=== PATIENT | female | born 1960 | race Caucasian/White ===

== ENCOUNTER → 2017-02-26 | Outpatient (CLI) | payer OTHER ==
--- NOTE | 2017-02-27 21:28 | WWHP ---
DATE OF SERVICE: 02/26/17 CHIEF COMPLAINT: The patient is here for her routine gynecological exam and mammogram. HISTORY OF PRESENT ILLNESS: This is a 56-year-old G2, P2, with an LMP of 2014. She is without gynecological complaints. Denies postmenopausal bleeding. PAST MEDICAL HISTORY: Chronic hypertension. Depression. Anxiety. Elevated cholesterol. Medications: Lisinopril with hydrochlorothiazide 20/25 one daily, Sertraline 50 mg daily, Pravastatin 40 mg daily, Flovent HFA b.i.d. and she is on another inhaler which she does not know the name of and she uses this q.h.s. ALLERGIES: No known drug allergies. 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 SOCIAL HISTORY: She denies tobacco and drug use and has about 15 alcohol containing drinks per week. This is mostly on the weekends. She has been since 1979 and is a homemaker. She has two grandchildren. REVIEW OF SYSTEMS: Weight has been stable. She denies respiratory, cardiac or gastrointestinal problems. PHYSICAL EXAM: Blood pressure 130/82. Height 5 feet 2 inches. Weight 175 pounds. Temperature 98.6. Pulse 90. This is a well developed, well nourished white female who is alert and oriented times three in no acute distress. HEENT: is within normal limits. Neck is supple without mass or thyromegaly. Chest and lungs clear to auscultation. Heart is regular rate and rhythm. Breasts: Without mass or discharge. Axillary exam is negative for adenopathy. Back negative for CVA tenderness. Abdomen is soft and nontender without palpable masses. Consistent with previous abdominoplasty. Pelvic exam, external genitalia reveals minimal atrophy without lesions. Cervix and vagina has minimal atrophy without lesions. There is no evidence of prolapse. The uterus is mid position, nongravid size and nontender. There are no palpable adnexal masses or tenderness. Rectovaginal exam negative for mass or tenderness. Negative for occult blood. Extremities nontender. IMPRESSION: A 56-year-old menopausal female with normal gynecological exam. PLAN: 1. Pap smear was deferred since she had a normal one last year. 2. Self breast examination was discussed. 3. Mammogram will be done today. 4. Osteoporosis prevention was discussed. 5. She will return in one year. [facility]
--- NOTE | 2017-02-28 10:23 | MM ---
Reason for exam: screening (asymptomatic). Last mammogram was performed 1 year and 7 months ago. History: Patient is postmenopausal. Family history of breast cancer in aunt. Taking hormonal contraceptives for 9 months beginning at age 46. Physical Findings: A clinical breast exam by your physician is recommended on an annual basis and results should be correlated with mammographic findings. MG 3D Screening Mammo W/Cad Bilateral CC and MLO view(s) were taken. Prior study comparison: August 02, 2015, bilateral MG screening mammo w CAD. June 29, 2014, bilateral MG screening mammo w CAD. June 24, 2013, bilateral digital screening mammo w/CAD. There are scattered fibroglandular densities. No suspicious abnormality. ASSESSMENT: Negative, BI-RAD 1 RECOMMENDATION: Routine screening mammogram of both breasts in 1 year.
== END | disposition home or self-care (01) ==
LOC: WWCWWP 14:31
PROVIDERS: ATTEND Obstetrics & Gynecology
DX: Z12.31 Encounter for screening mammogram for malignant neoplasm of breast (principal)
CPT/HCPCS: 77063; G0202

== ENCOUNTER 2017-03-11 12:53 | Emergency (ER) | payer OTHER ==
[2017-03-11] MEDS ORDERED: diphenhydrAMINE 50 MG/ML 1 ML VIAL IVP STA (13:10)
[2017-03-11] MEDS ORDERED: methylPREDNISolone SOD SUCCI 125 MG/2 ML VIAL IV STA (13:10)
[2017-03-11] MEDS ORDERED: FAMOTIDINE 20 MG/2 ML VIAL IV STA (13:10)
--- NOTE | 2017-03-11 13:23 | ED ---
General Adult HPI - General Chief complaint: Allergic Reaction Stated complaint: Bee Sting Time Seen by Provider: 03/11/17 13:04 Source: patient, RN notes reviewed Mode of arrival: ambulatory Limitations: no limitations - History of Present Illness Initial comments: Patient 56-year-old female who presents emergency room today with chief complaint of ALLERGIC reaction to bee sting that occurred yesterday. She does admit that she does have an EpiPen but cannot find yesterday. She states she did find that they did not give her something epinephrine. She has been using some Benadryl at home. She states she does have some increased swelling to the left forearm. Patient denies any difficulty breathing or swallowing. She denies any other complaints or symptoms at this time. Patient denies any recent fever, chills, shortness of breath, chest pain, back pain, abdominal pain, nausea or vomiting, numbness or tingling, dysuria or hematuria, constipation or diarrhea, headaches or visual changes, or any other complaints. - Related Data Home Medications Medication Instructions Recorded Confirmed Albuterol Inhaler [Ventolin Hfa 1 puff INHALATION RT-HS PRN 03/11/17 03/11/17 Inhaler] EPINEPHrine (Auto Inject) [Epipen] 0.3 mg IM ONCE PRN 03/11/17 03/11/17 Fluticasone Nasal [place] [Flonase 1 spray EA NOSTRIL DAILY PRN 03/11/17 03/11/17 Nasal [place]] Fluticasone Propionate [Flovent 1 puff INHALATION RT-BID 03/11/17 03/11/17 Hfa 110mcg] Gabapentin [Neurontin] 300 mg PO Q8HR 03/11/17 03/11/17 Hydrocortisone [Cortizone 10] 1 applic TOPICAL DAILY PRN 03/11/17 03/11/17 Lisinopril-Hctz 20-12.5 mg 1 tab PO DAILY 03/11/17 03/11/17 [Zestoretic 20-12.5] Losartan/Hydrochlorothiazide 1 tab PO DAILY 03/11/17 03/11/17 [Losartan-Hctz 100-25 mg Tab] Megared 1 tab PO DAILY 03/11/17 03/11/17 Melatonin 10 mg PO HS 03/11/17 03/11/17 Pravastatin Sodium [Pravachol] 40 mg PO DAILY 03/11/17 03/11/17 Sertraline HCl [Zoloft] 100 mg PO DAILY 03/11/17 03/11/17 Previous Rx's Medication Instructions Recorded EPINEPHrine [Epipen 2-Alirio] 0.3 mg IM ONCE PRN #1 ml 03/11/17 Famotidine [Pepcid] 20 mg PO BID #20 tablet 03/11/17 diphenhydrAMINE [Benadryl] 1 - 2 tab PO Q6HR PRN #30 capsule 03/11/17 predniSONE 60 mg PO DAILY 5 Days 03/11/17 Allergies Allergy/AdvReac Type Severity Reaction Status Date / Time bee pollen Allergy Swelling Verified 03/11/17 13:44 Review of Systems ROS Statement: Those systems with pertinent positive or pertinent negative responses have been documented in the HPI. ROS Other: All systems not noted in ROS Statement are negative. Past Medical History Past Medical History: Hyperlipidemia, Hypertension History of Any Multi-Drug Resistant Organisms: None Reported Past Surgical History: Joint Replacement, Orthopedic Surgery Past Psychological History: Depression Smoking Status: Never smoker Past Alcohol Use History: Occasional Past Drug Use History: None Reported General Exam - General Exam Comments Initial Comments: General: The patient is awake and alert, in no distress, and does not appear acutely ill. Eye: Pupils are equal, round and reactive to light, extra-ocular movements are intact. No nystagmus. There is normal conjunctiva bilaterally. No signs of icterus. Ears, nose, mouth and throat: There are moist mucous membranes and no oral lesions. Neck: The neck is supple, there is no tenderness or JVD. Cardiovascular: There is a regular rate and rhythm. No murmur, rub or gallop is appreciated. Respiratory: Lungs are clear to auscultation, respirations are non-labored, breath sounds are equal. No wheezes, stridor, rales, or rhonchi. Musculoskeletal: Normal ROM, no tenderness. Strength 5/5. Sensation intact. Pulses equal bilaterally 2+. Neurological: A&O x 3. CN II-XII intact, There are no obvious motor or sensory deficits. Coordination appears grossly intact. Speech is normal. Skin: Moderate redness swelling to the left forearm and hand. No lymphangitic streaking. No angioedema. Psychiatric: Cooperative, appropriate mood & affect, normal judgment. Limitations: no limitations Course Vital Signs 03/11/17 12:54 Temperature 98.8 F Pulse Rate 90 Respiratory 18 Rate Blood Pressure 167/83 O2 Sat by Pulse 95 Oximetry Medical Decision Making - Medical Decision Making Patient reexamined at this time shows no signs of distress. Does admit to improvement after steroids, Benadryl, Pepcid here the emergency room. Patient will be given a prescription for EpiPen to go home with. Continued on steroids. Advised follow-up family doctor. Advised return here to the emergency room symptoms increase or worsen or for any other concerns. Patient states her stay and is in agreement. Disposition Clinical Impression: Bee sting reaction Disposition: HOME SELF-CARE Condition: Good Instructions: Insect Bite or Sting (ED) Additional Instructions: Please use medication as discussed. Please follow-up with family doctor in the next 2 days of symptoms have not improved. Please return to emergency room if the symptoms increase or worsen or for any other concerns. Prescriptions: diphenhydrAMINE [Benadryl] 1 - 2 tab PO Q6HR PRN #30 capsule PRN Reason: Allergic Reaction EPINEPHrine [Epipen 2-Alirio] 0.3 mg IM ONCE PRN #1 ml PRN Reason: Allergic Reaction Famotidine [Pepcid] 20 mg PO BID #20 tablet predniSONE 60 mg PO DAILY 5 Days Referrals: Shravan Mcgregor DO [Primary Care Provider] - 1-2 days Time of Disposition: 14:23
[2017-03-11 14:35] VITALS: BP 141/82; PULSE 67; RESP 20; TEMP 97
== END 2017-03-11 14:33 | disposition home or self-care (01) ==
LOC: EC 12:53
DX: T63.441A Toxic effect of venom of bees, accidental (unintentional), initial encounter (principal); E78.5 Hyperlipidemia, unspecified; I10 Essential (primary) hypertension; F32.9 Major depressive disorder, single episode, unspecified; Z79.51 Long term (current) use of inhaled steroids; Z79.899 Other long term (current) drug therapy; Z91.030 Bee allergy status
CPT/HCPCS: 99283; 96374; 96375 ×2; J1200; J2930

== ENCOUNTER → 2017-10-02 | Outpatient (CLI) | payer OTHER ==
--- NOTE | 2017-10-02 21:47 | ECHOS ---
STRESS ECHOCARDIOGRAM INDICATIONS: Chest pain. MEDICATIONS: Pravastatin, Lisinopril, gabapentin, bupropion. BASELINE HEART RATE: 99 BASELINE BLOOD PRESSURE: 143/71 MAXIMUM HEART RATE: 150 MAXIMUM BLOOD PRESSURE: 143/71 85% MPHR: 138 100% MPHR: 162 METS: 6.8 MAXIMUM STAGE REACHED: 2 TOTAL EXERCISE TIME: 4:45 CLINICAL INFORMATION: Baseline EKG revealed normal sinus rhythm without significant ST-T changes. Patient walked for 4 minutes 45 seconds on a standard [place] protocol and achieved a maximal heart rate of 150 beats per minute, which is well above 85% of predicted maximal. She developed fatigue and shortness of breath but did not have any angina or arrhythmia. EKG did not reveal any ST-segment changes to indicate ischemia. Rare PVCs were noted. By EKG criteria, this is a negative stress test with limited exercise capacity. Baseline echo images revealed normal wall motion and wall thickening of all segments. Echo contrast was used to optimize the image quality. At peak exercise there was good augmentation of left ventricular wall motion and wall thickening of all segments, suggesting that there is no evidence of stress-induced ischemia on this study. IMPRESSION: 1. Limited exercise capacity with a negative stress test by EKG criteria. 2. Normal stress echocardiogram. MMODL / IJN: [id number] /
== END | disposition home or self-care (01) ==
LOC: RADNMMAIN 08:14
PROVIDERS: ATTEND Family Medicine
DX: R07.9 Chest pain, unspecified (principal); E78.5 Hyperlipidemia, unspecified; I10 Essential (primary) hypertension
CPT/HCPCS: 93350; 93017; Q9950

== ENCOUNTER → 2017-11-21 | Outpatient (CLI) | payer OTHER ==
--- NOTE | 2017-11-22 07:14 | XR ---
EXAMINATION TYPE: XR chest 2V DATE OF EXAM: 11/21/2017 COMPARISON: 06/15/2014 HISTORY: Chronic cough TECHNIQUE: Frontal and lateral views of the chest are obtained. FINDINGS: Interstitial prominence is seen diffusely, developed in the interim. There is no focal air space opacity, pleural effusion, or pneumothorax seen. The cardiac silhouette size is upper limits o f normal. The osseous structures are intact. IMPRESSION: Development of diffuse interstitial prominence in comparison to the prior of 06/25/2014. This could relate to mild interstitial pulmonary edema, atypical pneumonitis or could be seen in bro nchitis.
== END | disposition home or self-care (01) ==
LOC: RADXRYALE 16:37
PROVIDERS: ATTEND Family Medicine
DX: J81.1 Chronic pulmonary edema (principal)
CPT/HCPCS: 71046

== ENCOUNTER → 2017-12-13 | Outpatient (CLI) | payer OTHER ==
--- NOTE | 2017-12-13 10:58 | XR ---
EXAMINATION TYPE: XR chest 2V DATE OF EXAM: 12/13/2017 COMPARISON: 11/21/2017 HISTORY: Chronic cough. Follow-up from prior abnormal chest radiograph. TECHNIQUE: Frontal and lateral views of the chest are obtained. FINDINGS: Interstitial prominence has resolved. There is no focal air space opacity, pleural effusio n, or pneumothorax seen. The cardiac silhouette size is within mechanical limits of normal. The os seous structures are intact. Degenerative changes of the glenohumeral and acromioclavicular joints ar e redemonstrated. IMPRESSION: Interstitial prominence has resolved in the interim. No acute cardiopulmonary process on the current exam.
== END | disposition home or self-care (01) ==
LOC: RADXRYALE 09:38
PROVIDERS: ATTEND Family Medicine
DX: R06.02 Shortness of breath (principal)
CPT/HCPCS: 71046

== ENCOUNTER → 2018-02-06 | Outpatient (CLI) | payer OTHER ==
--- NOTE | 2018-02-06 17:05 | XR ---
EXAMINATION TYPE: XR elbow complete LT DATE OF EXAM: 02/06/2018 COMPARISON: NONE HISTORY: Elbow pain and swelling TECHNIQUE: 3 views FINDINGS: I see no fracture nor dislocation. There is no sign of elbow joint effusion. IMPRESSION: Negative left elbow exam.
== END | disposition home or self-care (01) ==
LOC: RADXRYALE 16:24
PROVIDERS: ATTEND Physician Assistant Medical
DX: M25.522 Pain in left elbow (principal); L03.114 Cellulitis of left upper limb

== ENCOUNTER → 2018-04-24 | Outpatient (CLI) | payer OTHER, MEDICARE ==
--- NOTE | 2018-04-25 08:57 | MM ---
Reason for exam: screening (asymptomatic). Last mammogram was performed 1 year and 2 months ago. History: Patient is postmenopausal. Family history of breast cancer in aunt. Took hormonal contraceptives for 9 months beginning at age 46. Physical Findings: A clinical breast exam by your physician is recommended on an annual basis and results should be correlated with mammographic findings. MG 3D Screening Mammo W/Cad Bilateral CC and MLO view(s) were taken. Prior study comparison: February 26, 2017, bilateral MG 3d screening mammo w/cad. August 02, 2015, bilateral MG screening mammo w CAD. The breast tissue is heterogeneously dense. This may lower the sensitivity of mammography. Benign appearing bilateral calcifications. No suspicious abnormality. No significant changes when compared with prior studies. ASSESSMENT: Benign, BI-RAD 2 RECOMMENDATION: Routine screening mammogram of both breasts in 1 year.
== END ==
LOC: RADMAMWWP 08:23
PROVIDERS: ATTEND Family Medicine
DX: Z12.31 Encounter for screening mammogram for malignant neoplasm of breast (principal)
CPT/HCPCS: 77063; 77067

== ENCOUNTER → 2019-03-12 | Outpatient (CLI) | payer OTHER, MEDICARE ==
[2019-03-12 11:34] LABS: HCT 42.6 % (34.0-46.0); HGB 14.2 gm/dL (11.4-16.0); MCH 31.9 pg (25.0-35.0); MCHC 33.4 g/dL (31.0-37.0); MCV 95.4 fL (80.0-100.0); Mean Platelet Volume 6.9; Platelet Count 311 k/uL (150-450); RBC 4.46 m/uL (3.80-5.40); RDW 13.8 % (11.5-15.5); WBC 8.3 k/uL (3.8-10.6)
[2019-03-12 11:43] LABS: ALT 56 U/L (9-52); AST 45 U/L (14-36); African American GFR (CKD) >90 (>60 ml/min/1.73 sqM); Albumin 4.5 g/dL (3.5-5.0); Alkaline Phosphatase 82 U/L (38-126); Anion Gap 9 mmol/L; Blood Urea Nitrogen 15 mg/dL (7-17); Calcium 10.1 mg/dL (8.4-10.2); Carbon Dioxide 30 mmol/L (22-30); Chloride 102 mmol/L (98-107); Glucose 98 mg/dL (74-99); INR 0.9 (<1.2); Partial Thromboplastin Time 25.4 sec (22.0-30.0); Potassium 4.5 mmol/L (3.5-5.1); Prothrombin Time 9.6 sec (9.0-12.0); Sodium 141 mmol/L (137-145); Total Bilirubin 0.6 mg/dL (0.2-1.3); Total Protein 7.7 g/dL (6.3-8.2)
[2019-03-12 11:52] LABS: Appearance,Urine Clear (Clear); Bacteria,Urine Rare /hpf; Bilirubin,Urine Negative (Negative); Blood,Urine Small (Negative); Color,Urine Light Yellow; Glucose,Urine (UA) Negative (Negative); Ketones,Urine Negative (Negative); Leukocyte Esterase,Urine Negative (Negative); Mucus,Urine Rare /hpf; Nitrite,Urine Negative (Negative); Protein,Urine Negative (Negative); RBC,Urine 1 /hpf (0-5); Squamous Epithelial Cell,Urine <1 /hpf (0-4); Urobilinogen,Urine <2.0 mg/dL (<2.0); WBC,Urine <1 /hpf (0-5)
== END | disposition home or self-care (01) ==
LOC: LABPAT 10:40
PROVIDERS: ATTEND Orthopaedic Surgery
DX: Z01.812 Encounter for preprocedural laboratory examination (principal)
CPT/HCPCS: 80053; 81001; 85027; 85610; 85730; 87070; 93005

== ENCOUNTER 2019-04-06 05:39 | Day surgery (SDC) | payer OTHER, MEDICARE ==
[~2019-04-06 05:39] MED LIST: MELOXICAM 7.5 MG TAB PO ONE; ONDANSETRON 4 MG/2 ML VIAL IVP ONE; TRANEXAMIC ACID 1,000 MG in SODIUM CHLORIDE 0.9% 100 ML IVPB ONE
[2019-04-06] MEDS ORDERED: ONDANSETRON 4 MG/2 ML VIAL IVP ONE (05:49)
[2019-04-06] MEDS ORDERED: HYDROmorphone 0.5 MG/0.5 ML SYRINGE IVP PRN ×3 (05:49→09:23)
[2019-04-06] MEDS ORDERED: LIDOCAINE 1% 20 ML VIAL (10MG/ML) FOR IV START INTRADERMA PRN (05:49)
[2019-04-06] MEDS: LACTATED RINGERS 1,000 ML IV SCH ×3 (06:27→21:15)
[2019-04-06] MEDS ORDERED: fentaNYL (PF) 50 MCG/ML 2 ML AMP IV ONE (06:43)
[2019-04-06] MEDS ORDERED: MIDAZOLAM (PF) 2 MG/2 ML VIAL IV ONE (06:43)
[2019-04-06] MEDS ORDERED: MIDAZOLAM 2 MG/2 ML VIAL ONE (07:29)
[2019-04-06] MEDS ORDERED: fentaNYL (PF) 50 MCG/ML 2 ML AMP ONE (07:29)
[2019-04-06] MEDS ORDERED: SODIUM CHLORIDE 0.9% 100 ML BAG ONE (07:29)
[2019-04-06] MEDS ORDERED: TRANEXAMIC ACID 1,000 MG/10 ML VIAL ONE (07:29)
[2019-04-06] MEDS ORDERED: PROPOFOL 10 MG/ML 20 ML VIAL IV ONE (07:29)
[2019-04-06] MEDS ORDERED: PHENYLEPHRINE-0.9% NACL SYG 1 MG/10 ML SYRINGE ONE (07:29)
[2019-04-06] MEDS ORDERED: ceFAZolin 3,000 MG in SODIUM CHLORIDE 0.9% IRRIGATIO 3,000 ML IRRIGATION ONE (07:35)
[2019-04-06] MEDS ORDERED: ROPIVACAINE 246.25 MG, EPINEPHrine 0.5 MG, KETOROLAC 30 MG, cloNIDine HCL/PF 80 MCG, WA... MISCELLANE STA ×5 (07:38)
[2019-04-06] MEDS ORDERED: ROPIVACAINE 0.2%-NS ON-Q PUMP 1,090 MG, EMPTY PAIN BALL 1 EACH MISCELLANE PRN (08:25)
--- NOTE | 2019-04-06 09:07 | P.OP ---
Date of Procedure: 04/06/19 Procedure(s) Performed: PREOPERATIVE DIAGNOSIS: Right knee severe osteoarthritis with genu varum POSTOPERATIVE DIAGNOSIS: Right knee severe osteoarthritis with genu varum OPERATION: Right knee cemented total replacement arthroplasty. ANESTHESIA: Spinal ESTIMATED BLOOD LOSS: 100 ml. BELT CUTTER: Lisbeth Dyson PA-C (assistance with: patient positioning, retraction, exposure, hemostasis, leg positioning, implantation, irrigation, closure, dressing) COMPLICATIONS: None apparent. COMPONENTS IMPLANTED: Journey II BCS total knee system from [employer] and [employer] [facility] INDICATIONS: Jennifer is a 58 year old female with a history of right knee osteoarthritis. The patient's knee is end-stage, and conservative management has failed. The operation of knee replacement has been discussed at length in the office, as well as potential risks and complications. These are inclusive of, but not limited to: bleeding, infection, scarring, discomfort, blood vessel and nerve damage, need for further surgery, failure to relieve symptoms, persistence, recurrence, or worsening of problems, loosening, dislocation, wear, blood clot, pulmonary embolism, , gait dysfunction, stiffness, and other risks as discussed in the office. The patient elects to proceed and the consent form has been signed. PROCEDURE: The patient was taken to the operating room and positioned on the operating room table in the supine position. Anesthesia was initiated. Care was taken to make sure that all pressure points were adequately padded. The right operative lower extremity was prepped and draped in the usual aseptic fashion using ChloraPrep. Ioban drape was used for the case and the patient received intravenous antibiotics within one hour of the incision. A pneumotourniquet and leg craft were used for the case. The limb was exsanguinated with an Esmarch bandage and the tourniquet was inflated to 350 mm Hg. Time-out was called confirming the patient's identity, side, procedure and administration of antibiotics and tranexamic acid. The incision was then created midline directly over the left knee, carried down through skin and into the subcutaneous tissues and down to fascia. Full thickness subcutaneous medial flap was developed. Medial parapatellar arthrotomy was performed and the interior of the knee was inspected. There was end-stage osteoarthritis of the knee with a mild to moderate genu varum type deformity. The fat pad was excised and proximal medial release on the tibia was completed using meticulous dissection and a curved osteotome. The anterior cruciate ligament was taken down. Note was made of significant attrition of the anterior and significant degenerative appearance of the cruciate ligaments. The exposure was excellent. The knee was flexed 90 degrees and the patella was everted. The [employer] pre- made distal cutting block was attached and pinned into position. The planned cut was analyzed visually and found to be satisfactory without the need for any adjustment. The oscillating saw was then used to make the distal femoral cut. This cut was confirmed to be flat with the flat end of an osteotome. The retractors were placed around the tibia and the tibial surface was addressed. The [employer] pre-made guide was placed onto the exposed tibial surface and pinned into position to ysabel the rotational alignment. The alignment of the guide was checked for depth of plannned resection, slope, and varus valgus. Guide was confirmed to be in good position and the tibial cut was then created with protection of the posterior neurovascular structures and the collateral ligaments. The tibial cut surface was removed and sized. Femoral sizing was then accomplished using posterior referencing. Care was taken to analyze the posterior condyles for signs of deficiency or severe wear, and adjustments to the guide were made, as appropriate. 3 degree external r otation pins were placed relative to [place]'s line. The cutting jig for the femur was applied to these pins. The planned cuts were further analyzed prior to performing them with the oscillating saw. No femoral notching was produced. Bone fragments were removed and the cut surfaces were finished, as necessary, with a reciprocating saw. Spacer block technique was then used to confirm that the flexion and extension gaps were equal. Soft tissue releases and adjustment of the tibial and/or femoral cuts were made, as necessary, until the gaps were equal. This included release of the posterior cruciate ligament, which was excessively tight in this patient. The femur was then further finished for a posterior cruciate ligament substituting component. Patellar resurfacing was performed using a reamer. The size of the required patellar component was estimated and the patellar surface was then reamed down to a residual thickness which would recreate the craig thickness with the component. The exact placement of the patellar component was adjusted for position based on preoperative x-rays and intraoperative findings. Prior to placing trial components, anesthetic solution consisting of ropivicaine with epinephrine, ketorolac, and clonidine was injected carefully and methodically in a grid pattern using aspiration technique into the soft tissue around the knee circumferentially, starting with the deeper tissues first and progressing to fascia, and then finally the skin/subcutaneous tissue. Particular care was taken when injecting the posterior capsule. The trial components were inserted. The tibial tray was allowed to self center and the patella was noted to track very well. The position of the tibial component was marked and noted to be nearly exactly aligned with the pre-drilled holes from the [employer] guide. The tibia was then finished for a stemmed tibial component. Cement was mixed on the back table and applied to the final components. Trial components were removed and the cut surfaces of the bone were pulse lavaged thoroughly and dried. Cement was then applied to the tibial surface and pressurized into the surface using finger pressurization technique. The tibial component was then applied and excess cement was removed after it was impacted securely and noted to be flush with the cut surface. In similar fashion, the cement was applied to the cut femoral surface, pressurized in using finger pressurization and the component was impacted into place. Excess cement was removed. The polyethylene spacer was then implanted and locked into position. The patellar component was then applied in similar technique and a patellar clamp was used to hold the patella in place as the cement hardened. Once the cement had fully hardened, the knee was reinspected. Any other cement extrusion was removed and final kinematic testing showed range of motion from 0 to 130 degrees with excellent stability, both medially and laterally and appropriate alignment of the leg. Patellar tracking was excellent. The knee was then thoroughly pulse lavaged with normal saline. The tourniquet was deflated and hemostasis was obtained with electrocautery and IV tranexamic acid, 1 g given at the start of the operation and 1 g at the start of closure. Closure was with #2 Ethibond in the fascia/capsule and supplemented with #2 Quill, 2-0 Vicryl suture was used for the subcutaneous tissues and 3-0 Quill for the skin. Dermabond/Steri-Strips were then applied. A lightly compressive dressing was applied using Webril and an Godwin wrap. The patient was then transferred to stretcher and taken to the recovery room in stable condition. Sponge and needle counts were correct.
[2019-04-06] MEDS ORDERED: BISACODYL 10 MG SUPP RECTAL PRN (09:23)
[2019-04-06] MEDS ORDERED: NALOXONE 0.4 MG/ML 1 ML VIAL IV PRN (09:23)
[2019-04-06] MEDS ORDERED: MAGNESIUM HYDROXIDE 2,400 MG/10 ML CUP PO PRN (09:23)
[2019-04-06] MEDS ORDERED: HYDROmorphone 1 MG/ML 1 ML SYRINGE IVP PRN (09:23)
[2019-04-06] MEDS ORDERED: HYDROcodone/APAP 5-325MG 1 EACH TAB PO PRN (09:23)
[2019-04-06] MEDS ORDERED: NA PHOS,M-B/NA PHOS,DI-BA 133 ML ENEMA RECTAL PRN (09:23)
--- NOTE | 2019-04-06 10:46 | XR ---
EXAMINATION TYPE: XR knee limited RT DATE OF EXAM: 04/06/2019 COMPARISON: NONE HISTORY: 58-year-old female evaluation for postoperative abnormality and alignment TECHNIQUE: 2 views FINDINGS: Images show right total knee arch plasty. Both distal femoral and proximal tibial components of the p rosthesis are well seated without periprosthetic fracture. Alignment grossly anatomic. Anterior soft tissue swelling with soft tissue air as well as intra-articular air and joint effusion compatible wit h recent operation. IMPRESSION: Uncomplicated postoperative appearance right total knee arthroplasty.
[2019-04-06 10:47] VITALS: BMI 33.8
[2019-04-06] MEDS: HYDROcodone/APAP 5-325MG 1 EACH TAB PO PRN ×2 (13:33→19:22)
[2019-04-06] MEDS: ASPIRIN 325 MG TAB PO SCH (19:22)
[2019-04-06] MEDS ORDERED: SENNOSIDES-DOCUSATE SODIUM 1 EACH TAB PO SCH (21:00)
[2019-04-06] MEDS ORDERED: TEMAZEPAM 15 MG CAP PO PRN (22:00)
[2019-04-07] MEDS: HYDROcodone/APAP 5-325MG 1 EACH TAB PO PRN (03:27)
[2019-04-07] MEDS: LACTATED RINGERS 1,000 ML IV SCH ×2 (05:42)
[2019-04-07 06:37] LABS: Basophils # (A) 0.1 k/uL (0-0.2); Basophils % (A) 1 %; Eosinophils # (A) 0.3 k/uL (0-0.7); Eosinophils % (A) 3 %; HCT 36.1 % (34.0-46.0); Lymphocytes # (A) 2.1 k/uL (1.0-4.8); Lymphocytes % (A) 25 %; MCH 31.3 pg (25.0-35.0); MCHC 33.3 g/dL (31.0-37.0); Mean Platelet Volume 6.8; Monocytes # (A) 0.5 k/uL (0-1.0); Monocytes % (A) 5 %; Neutrophils # (A) 5.4 k/uL (1.3-7.7); Neutrophils % (A) 64 %; Platelet Count 211 k/uL (150-450); RBC 3.83 m/uL (3.80-5.40); RDW 12.1 % (11.5-15.5); WBC 8.5 k/uL (3.8-10.6)
[2019-04-07 08:08] VITALS: BP 145/79; PULSE 100; RESP 15; TEMP 99
[2019-04-07] MEDS: ASPIRIN 325 MG TAB PO SCH (08:21)
--- NOTE | 2019-04-07 10:00 | P.DS ---
Providers Expected date of discharge: 04/07/19 Attending physician: Sukhdev Wakefield Consults: 04/06/19 09:23 Consult Physician Routine Consulting Provider: Ramiro Rodríguez Consult Reason/Comments: Medical management Do you want consulting provider notified?: Yes Primary care physician: Shravan Mcgregor - Discharge Diagnosis(es) (1) Osteoarthritis of right knee Current Visit: Yes Status: Acute (2) Status post total right knee replacement Current Visit: Yes Status: Acute Hospital Course: This is a 58-year-old female who was last seen with complaint of continued right knee pain. The patient has a known history of degenerative arthritis of the right knee and presents to discuss surgical options. After discussion and consideration the patient elects to proceed with total right knee arthroplasty. The patient is seen preoperatively by Dr. Mcgregor and cleared for surgery. The patient is admitted to [facility] for total right knee arthroplasty. The procedures performed without complication or sequelae. Patient is doing well postoperatively. Vital signs are stable at discharge. Labs are stable at discharge. the patient is ambulating well with walker with minimal assistance. The patient is discharged to home on postop day #1 pending medical clearance. Please see orders and refer to the med rec for accurate list of medications. Plan - Discharge Summary Discharge Rx Participant: Yes New Discharge Prescriptions: New Aspirin 325 mg PO BID #60 tab Sennosides-Docusate Sodium [Senokot-S] 1 tab PO BID #60 tablet HYDROcodone/APAP 7.5-325MG [[place] 7.5-325] 1 - 2 tab PO Q4-6H PRN #50 tab PRN Reason: Pain No Action Gabapentin [Neurontin] 300 mg PO HS buPROPion HCL [Wellbutrin SR] 150 mg PO BID Lidocaine 5% Patch [Lidoderm] 1 patch TOPICAL DAILY PRN PRN Reason: Pain ARIPiprazole [Abilify] 10 mg PO QAM Atorvastatin [Lipitor] 40 mg PO Q2D Losartan/Hydrochlorothiazide [Losartan-Hctz 100-25 mg Tab] 0.5 tab PO QAM Discharge Medication List Gabapentin [Neurontin] 300 mg PO HS 03/11/17 [History] ARIPiprazole [Abilify] 10 mg PO QAM 03/31/19 [History] Atorvastatin [Lipitor] 40 mg PO Q2D 03/31/19 [History] Lidocaine 5% Patch [Lidoderm] 1 patch TOPICAL DAILY PRN 03/31/19 [History] Losartan/Hydrochlorothiazide [Losartan-Hctz 100-25 mg Tab] 0.5 tab PO QAM 03/31/19 [History] buPROPion HCL [Wellbutrin SR] 150 mg PO BID 03/31/19 [History] Aspirin 325 mg PO BID #60 tab 04/06/19 [Rx] Sennosides-Docusate Sodium [Senokot-S] 1 tab PO BID #60 tablet 04/06/19 [Rx] HYDROcodone/APAP 7.5-325MG [[place] 7.5-325] 1 - 2 tab PO Q4-6H PRN #50 tab 04/07/19 [Rx] Follow up Appointment(s)/Referral(s): Lisbeth Dyson PAC [PHYSICIAN SENIOR [employer] D[employer]] - 04/23/19 2:45 pm Shravan Mcgregor DO [Primary Care Provider] - 04/14/19 10:20 am Patient Instructions/Handouts: *Surgery [facility] - On-Q Pain Pump Discharge Instructions, Knee Replacement (DC) Activity/Diet/Wound Care/Special Instructions: May bear wt as tolerated w walker. May shower if no drainage from incision 48h post op. Discharge Disposition: HOME WITH HOME HEALTH SERVICES
--- NOTE | 2019-04-07 11:39 | P.PN ---
Progress Note - Text 04/07 642am 58-year-old female status post total knee replacement by Dr. Wakefield. Patient has an On-Q pump for postop pain control with the solution running at 8 mL an hour with a VAS of 2. Plan to continue On-Q pump infusion
--- NOTE | 2019-04-07 11:52 | P.CONS ---
History of Present Illness - Reason for Consult medications regarding antihypertensive medications. - History of Present Illness is a pleasant 4-year-old female admitted for a elective right Breast is excessi ve and underwent surgery patient is being discharged today. Patient blood pressures in the elevated today didn't receive her anti-happens medications or antidepressants , patient will go home and will start her on anti-depressant medications as he is she is already being discharged today. Patient denied any fever chills nausea vomiting did pass gas didn't clinically doing well does have some pain in the right knee. Review of Systems REVIEW OF SYSTEMS: CONSTITUTIONAL: No fever, no malaise, no fatigue. HEENT: No recent visual problems or hearing problems. Denied any sore throat. CARDIOVASCULAR: No chest pain, orthopnea, PND, no palpitations, no syncope. PULMONARY: No shortness of breath, no cough, no hemoptysis. GASTROINTESTINAL: No diarrhea, no nausea, no vomiting, no abdominal pain. NEUROLOGICAL: No headaches, no weakness, no numbness. HEMATOLOGICAL: Denies any bleeding or petechiae. GENITOURINARY: Denies any burning micturition, frequency, or urgency. MUSCULOSKELETAL/RHEUMATOLOGICAL: Denies any joint pain, swelling, or any muscle pain. ENDOCRINE: Denies any polyuria or polydipsia. The rest of the 14-point review of systems is negative. Past Medical History Past Medical History: Hyperlipidemia, Hypertension, Osteoarthritis (OA) History of Any Multi-Drug Resistant Organisms: None Reported Past Surgical History: Orthopedic Surgery Additional Past Surgical History / Comment(s): arthroscopy lt knee,lt achilles tendon repair,ORIF rt ankle Past Anesthesia/Blood Transfusion Reactions: No Reported Reaction Additional Past Anesthesia/Blood Transfusion Reaction / Comm: no hx blood transfusion Past Psychological History: Depression Smoking Status: Never smoker Past Alcohol Use History: Occasional Past Drug Use History: None Reported - Past Family History Father Family Medical History: No Reported History Mother Family Medical History: Cancer Medications and Allergies Home Medications Medication Instructions Recorded Confirmed Type Gabapentin [Neurontin] 300 mg PO HS 03/11/17 04/06/19 History ARIPiprazole [Abilify] 10 mg PO QAM 03/31/19 03/31/19 History Atorvastatin [Lipitor] 40 mg PO Q2D 03/31/19 04/06/19 History Lidocaine 5% Patch [Lidoderm] 1 patch TOPICAL DAILY PRN 03/31/19 04/06/19 History Losartan/Hydrochlorothiazide 0.5 tab PO QAM 03/31/19 03/31/19 History [Losartan-Hctz 100-25 mg Tab] buPROPion HCL [Wellbutrin SR] 150 mg PO BID 03/31/19 03/31/19 History Aspirin 325 mg PO BID #60 tab 04/06/19 Rx Sennosides-Docusate Sodium 1 tab PO BID #60 tablet 04/06/19 Rx [Senokot-S] HYDROcodone/APAP 7.5-325MG [[place] 1 - 2 tab PO Q4-6H PRN #50 tab 04/07/19 Rx 7.5-325] Allergies Allergy/AdvReac Type Severity Reaction Status Date / Time bee pollen Allergy Swelling Verified 04/06/19 06:08 Physical Exam Vitals: Vital Signs Temp Pulse Pulse Resp BP Pulse Ox 04/07/19 07:45 99.0 F 100 15 145/79 94 L 04/07/19 02:05 99.4 F 96 132/81 98 04/07/19 00:12 16 04/06/19 19:15 16 04/06/19 18:50 98.2 F 92 17 122/74 95 04/06/19 14:30 98.1 F 91 17 98/63 04/06/19 12:15 84 117/75 04/06/19 12:00 80 116/74 Intake and Output 04/06/19 04/07/19 04/07/19 22:59 06:59 14:59 Intake Total 200 Balance 200 Intake: Oral 200 Other: Voiding Method Toilet Toilet # Voids 2 1 # Bowel Movements 2 PHYSICAL EXAMINATION: GENERAL: The patient is alert and oriented x3, not in any acute distress. Well developed, well nourished. HEENT: Pupils are round and equally reacting to light. EOMI. No scleral icterus. No conjunctival pallor. Normocephalic, atraumatic. No pharyngeal erythema. No thyromegaly. CARDIOVASCULAR: S1 and S2 present. No murmurs, rubs, or gallops. PULMONARY: Chest is clear to auscultation, no wheezing or crackles. ABDOMEN: Soft, nontender, nondistended, normoactive bowel sounds. No palpable organomegaly. MUSCULOSKELETAL: deferred to orthopedic surgery EXTREMITIES: No cyanosis, clubbing, or pedal edema. NEUROLOGICAL: Gross neurological examination did not reveal any focal deficits. SKIN: No rashes. Results CBC & Chem 7: 04/07/19 05:58 Assessment and Plan Plan: -hypertension: Patient can resume her home medications for blood pressure tomorrow -Depression patient will resume her Abilify and Wellbutrin today. -Right knee arthroplasty patient is an due to prophylaxis with twice a day aspirin 325 mg. Pain management as per primary service -hyperlipemia patient was recommended to continuestatin
== END 2019-04-07 13:54 | disposition home health service (06) ==
LOC: OR 05:39 → 4SSUR 09:11 → OR 04-07 13:54
PROVIDERS: ATTEND Orthopaedic Surgery
DX: M17.11 Unilateral primary osteoarthritis, right knee (principal); M21.161 Varus deformity, not elsewhere classified, right knee; I10 Essential (primary) hypertension; E78.2 Mixed hyperlipidemia; F32.9 Major depressive disorder, single episode, unspecified; E55.9 Vitamin D deficiency, unspecified; E66.9 Obesity, unspecified; F10.14 Alcohol abuse with alcohol-induced mood disorder; K76.0 Fatty (change of) liver, not elsewhere classified; J45.30 Mild persistent asthma, uncomplicated; K21.9 Gastro-esophageal reflux disease without esophagitis; M47.27 Other spondylosis with radiculopathy, lumbosacral region; Z79.82 Long term (current) use of aspirin; Z79.899 Other long term (current) drug therapy; Z98.890 Other specified postprocedural states; Z91.030 Bee allergy status; Z80.9 Family history of malignant neoplasm, unspecified; Z68.34 Body mass index [BMI] 34.0-34.9, adult
CPT/HCPCS: 97116; 97161; 64448; 76942; 85025; 88300; 73560; 27447; C1713; C1776; J0171; J0690 ×3; J2405; J3010; J1885; J2795; J2370; J2704; J0735; J2250

== ENCOUNTER → 2020-04-27 | Outpatient (CLI) | payer OTHER, MEDICARE ==
[2020-04-27 11:05] VITALS: BP 120/79; PULSE 102; RESP 18; TEMP 98.7
--- NOTE | 2020-04-27 11:59 | P.HPOB ---
History of Present Illness H&P Date: 04/27/20 Chief Complaint: The patient is here for her routine gynecologic exam and ma mmogram. This is a 59-year-old with an LMP of 2015. The patient is without gynecologic complaints and denies any postmenopausal bleeding. Review of Systems The patient has gained 26 pounds over the last 3 years. She has been trying to lose weight with a low carbohydrate diet. She typically eats 2 meals per day. She denies respiratory, cardiac, or G.I. problems. 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 History of Any Multi-Drug Resistant Organisms: None Reported Past Surgical History: Joint Replacement, Orthopedic Surgery Additional Past Surgical History / Comment(s): Abdominoplasty 1999. Colonoscopy 2008. Ankle surgery. Right knee replacement. 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 She has 2 grandchildren. - Past Family History Mother Family Medical History: Cancer Additional Family Medical History / Comment(s): Lung cancer. Maternal aunt had breast cancer. Father Additional Family Medical History / Comment(s): Committed suicide. Medications and Allergies Home Medications Medication Instructions Recorded Confirmed Type Gabapentin [Neurontin] 300 mg PO HS 03/11/17 04/27/20 History ARIPiprazole [Abilify] 10 mg PO QAM 03/31/19 04/27/20 History Lidocaine 5% Patch [Lidoderm] 1 patch TOPICAL DAILY PRN 03/31/19 04/27/20 History Losartan/Hydrochlorothiazide 0.5 tab PO QAM 03/31/19 04/27/20 History [Losartan-Hctz 100-25 mg Tab] buPROPion HCL [Wellbutrin SR] 150 mg PO BID 03/31/19 04/27/20 History Allergies Allergy/AdvReac Type Severity Reaction Status Date / Time bee pollen Allergy Swelling Verified 04/27/20 10:59 Exam Vital Signs Temp Pulse Resp BP Pulse Ox 04/27/20 11:01 98.7 F 102 H 18 120/79 95 Intake and Output 04/26/20 04/27/2004/27/20 22:59 06:59 14:59 Other: Weight 91.172 kg Height 5 feet 2-1/2 inches, weight 201 pounds, BMI 36.2. This is a well-developed well-nourished heavyset white female who is alert and oriented times 3 in no acute distress. HEENT: Within normal limits. NECK: Supple without mass or thyromegaly. CHEST AND LUNGS: Clear to auscultation. HEART: Regular rate and rhythm. BREASTS: Are without mass or discharge. AXILLARY EXAM: Negative for adenopathy. BACK: Negative for CVA tenderness. ABDOMEN: Soft, obese, nontender, without palpable masses. PELVIC EXAM: Normal external genitalia with mild atrophy. Cervix and vagina appear normal mild atrophy. There is no unusual discharge. There is no evidence of prolapse. The uterus is midposition, nongravid size and nontender. There are no palpable adnexal masses or tenderness. Bimanual examination is somewhat limited secondary to her size. RECTAL EXAM: Rectovaginal exam is negative for mass or tenderness and is negative for occult blood. EXTREMITIES: Nontender. IMPRESSION: 1. 59-year-old menopausal female with normal gynecologic exam. 2. Overweight. PLAN: 1. Pap smear was performed. 2. Self breast awareness was discussed with the patient. 3. Screening mammogram will be done today. 4. Osteoporosis prevention was discussed. I have stressed the importance of adequate calcium, vitamin D and regular exercise. Recommended amounts of calcium and vitamin D were also discussed. I have recommended bone density testing since she has not had this done. The order slip was given to the patient for this. 5. She is due for her colonoscopy and she states she will have Dr. Mcgregor's office help her schedule this. 6. We have had a long discussion regarding weight control since she is trying to lose weight and has gained several pounds over the past 3 years. I have stressed the importance of good nutrition, regular meals, adequate fiber in her diet, and regular exercise. If she needs more structured to her program, I have recommended that she consider Weight Watchers program. 7. She was advised to return in one year for her annual well woman exam.
--- NOTE | 2020-05-02 13:24 | MM ---
Reason for exam: screening (asymptomatic). Last mammogram was performed 2 years ago. History: Patient is postmenopausal. Family history of breast cancer in aunt. Took hormonal contraceptives for 9 months beginning at age 46. Physical Findings: A clinical breast exam by your physician is recommended on an annual basis and results should be correlated with mammographic findings. MG 3D Screening Mammo W/Cad Bilateral CC and MLO view(s) were taken. Prior study comparison: April 24, 2018, bilateral MG 3d screening mammo w/cad. February 26, 2017, bilateral MG 3d screening mammo w/cad. There are scattered fibroglandular densities. There are benign appearing round calcifications in the right breast. There is no discrete abnormality. ASSESSMENT: Benign, BI-RAD 2 RECOMMENDATION: Routine screening mammogram of both breasts in 1 year.
== END | disposition home or self-care (01) ==
LOC: WWCWWP 10:20
PROVIDERS: ATTEND Obstetrics & Gynecology
DX: Z12.31 Encounter for screening mammogram for malignant neoplasm of breast (principal)
CPT/HCPCS: 77063; 77067

== ENCOUNTER → 2020-05-19 | Outpatient (CLI) | payer OTHER, MEDICARE ==
--- NOTE | 2020-05-19 14:22 | BD ---
EXAMINATION TYPE: Axial Bone Density DATE OF EXAM: 05/19/2020 COMPARISON: NONE CLINICAL HISTORY: Z78.0, asymptomatic menopausal state Height: 5 FT 3 IN Weight: 197 FRAX RISK QUESTIONS: Alcohol (3 or more units per day): NO Family History (Parent hip fracture): NO Glucocorticoids (More than 3mos): NO (Ex: prednisone, prednisolone, methylprednisolone, dexamethasone, and hydrocortisone). History of Fracture in Adulthood: YES Secondary Osteoporosis: 1. Type 1 Diabetes: NO 2. Hyperthyroidism: NO 3. Menopause before 45: NO 4. Malnutrition: NO 5. Chronic liver disease: NO Rheumatoid Arthritis: NO Current Tobacco Use: NO RISK FACTORS HISTORY OF: Family History of Osteoporosis: NO Active: YES Diet low in dairy products/other sources of calcium: NO Postmenopausal woman: AGE 48 Take estrogen and/or progesterone medications: NONE Lost more than 2 inches in height since high school: NO MEDICATIONS: Additional Medications: BLOOD PRESSURE MEDS, WELLBUTRIN, ABILIFY, PAIN PATCH NEEDED Additional History: EXAM MEASUREMENTS: Bone mineral densitometry was performed using the [employer] System. Bone mineral density as measured about the Lumbar spine is: ----- L1-L4(G/cm2): 1.139 T Score Values are as follows: ----- L2: -0.7 ----- L3: 0.1 ----- L4: -0.1 ----- L1-L4: -0.3 BASELINE Bone mineral density about the R hip (g/cm2): 0.864 Bone mineral density about the L hip (g/cm2): 0.923 T Score values are as follows: -----R Neck: -1.2 -----L Neck: -0.8 -----R Total: -0.2 -----L Total: 0.4 BASELINE IMPRESSION: Osteopenia (T Score between -2.5 and -1). There is slightly increased risk of fracture and the patient may be considered for treatment. Re-Screen 2-5 years. NOTE: T-SCORE=SD OF THE YOUNG ADULT MEAN.
== END | disposition home or self-care (01) ==
LOC: RADBDWWP 09:28
PROVIDERS: ATTEND Obstetrics & Gynecology
DX: M85.80 Other specified disorders of bone density and structure, unspecified site (principal); Z78.0 Asymptomatic menopausal state
CPT/HCPCS: 77080

== ENCOUNTER → 2021-06-28 | Outpatient (CLI) | payer MEDICARE ==
[2021-06-28 08:10] VITALS: BP 117/69; PULSE 92; RESP 18; TEMP 98.1
--- NOTE | 2021-06-28 08:42 | P.HPOB ---
History of Present Illness H&P Date: 06/28/21 Chief Complaint: The patient is here for her routine gynecologic exam and ma mmogram. This is a 60-year-old with an LMP of 2014. The patient is without gynecologic complaints and denies any postmenopausal bleeding. Review of Systems The patient has lost 7 pounds over the last year. She denies respiratory, cardiac, or G.I. problems. Past Medical History Past Medical History: Hyperlipidemia, Hypertension Additional Past Medical History / Comment(s): Osteopenia. PAST MANAGER FILM HISTORY: She has no history of STDs. History of Any Multi-Drug Resistant Organisms: None Reported Past Surgical History: Joint Replacement, Orthopedic Surgery Additional Past Surgical History / Comment(s): Abdominoplasty 1999. Colonoscopy 2008(Cologard 2019). Ankle surgery. Right knee replacement. 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 She has 2 grandchildren. - Past Family History Mother Family Medical History: Cancer Additional Family Medical History / Comment(s): Lung cancer. Maternal aunt had breast cancer. Father Additional Family Medical History / Comment(s): Committed suicide. Medications and Allergies Home Medications Medication Instructions Recorded Confirmed Type Gabapentin [Neurontin] 300 mg PO HS 03/11/17 06/28/21 History ARIPiprazole [Abilify] 10 mg PO QAM 03/31/19 06/28/21 History Losartan/Hydrochlorothiazide 0.5 tab PO QAM 03/31/19 06/28/21 History [Losartan-Hctz 100-25 mg Tab] buPROPion HCL [Wellbutrin SR] 150 mg PO BID 03/31/19 06/28/21 History Liraglutide [Victoza 2-Alirio] 1.2 mg SQ DAILY 06/28/21 06/28/21 History Allergies Allergy/AdvReac Type Severity Reaction Status Date / Time bee pollen Allergy Swelling Verified 06/28/21 08:01 Exam Vital Signs Temp Pulse Resp BP Pulse Ox 06/28/21 08:05 98.1 F 92 18 117/69 98 Intake and Output 06/27/21 06/28/21 06/28/21 22:59 06:59 14:59 Other: Weight 87.997 kg Height 5 feet 3 inches, weight 194 pounds, BMI 34.9. This is a well-developed well-nourished white female who is alert and oriented times 3 in no acute distress. HEENT: Within normal limits. NECK: Supple without mass or thyromegaly. CHEST AND LUNGS: Clear to auscultation. HEART: Regular rate and rhythm. BREASTS: Are without mass or discharge. AXILLARY EXAM: Negative for adenopathy. BACK: Negative for CVA tenderness. ABDOMEN: Soft, nontender, without palpable masses. PELVIC EXAM: Normal external genitalia with mild atrophy. Cervix and vagina appear normal with mild atrophy. There is no unusual discharge. There is no evidence of prolapse. The uterus is midposition, nongravid size and nontender. There are no palpable adnexal masses or tenderness. RECTAL EXAM: Rectovaginal exam is negative for mass or tenderness and is negative for occult blood. EXTREMITIES: Nontender. IMPRESSION: 1. 60-year-old menopausal female with normal gynecologic exam 2. History of osteopenia. PLAN: 1. Pap smear was deferred since she had a normal one on 04/27/20. 2. Self breast awareness was discussed with the patient. We have also discussed symptoms associated with inflammatory breast cancer. 3. Screening mammogram will be done today. 4. Osteoporosis prevention was discussed. I have stressed the importance of adequate calcium, vitamin D and regular exercise. Recommended amounts of calcium and vitamin D were also discussed. We will plan on repeating bone density testing in 1-2 years since she had one in 2019. 5. She has completed her Covid vaccination series. 6. Colorectal cancer screening was discussed. She states she had a normal Cologuard testing done this year through her PCP. 7. She was advised to return in one year for her annual well woman exam.
== END ==
LOC: WWCWWP 08:31
PROVIDERS: ATTEND Obstetrics & Gynecology
DX: Z12.31 Encounter for screening mammogram for malignant neoplasm of breast (principal); E78.5 Hyperlipidemia, unspecified; I10 Essential (primary) hypertension; F41.9 Anxiety disorder, unspecified; F32.A Depression, unspecified; Z87.39 Personal history of other diseases of the musculoskeletal system and connective tissue; Z79.899 Other long term (current) drug therapy; Z91.030 Bee allergy status
CPT/HCPCS: 77063; 77067

== ENCOUNTER → 2022-07-17 | Outpatient (CLI) | payer MEDICARE ==
--- NOTE | 2022-07-17 16:15 | BD ---
EXAMINATION TYPE: Axial Bone Density DATE OF EXAM: 07/17/2022 COMPARISON: 05/19/2020 CLINICAL HISTORY: 61 years year old Female. ICD-10 CODE: [id number] SCREENING FOR OSTEOPOROSIS Height: 61.5 Weight: 185 FRAX RISK QUESTIONS: Family History (Parent hip fracture): NO History of Fracture in Adulthood: NO Secondary Osteoporosis: NO Rheumatoid Arthritis: NO RISK FACTORS HISTORY OF: Family History of Osteoporosis: NO Active: YES Diet low in dairy products/other sources of calcium: YES Postmenopausal woman: YES 48 Lost more than 2 inches in height since high school: NO Frequent falls: NO Poor Health: NO Hyperparathyroidism: NO Adrenal Insufficiency: NO MEDICATIONS: Additional Medications: YES DIABETIC MEDS , NEURONTIN, DEPRESSION MEDS , EXAM MEASUREMENTS: Bone mineral densitometry was performed using the [employer] System. Bone mineral density as measured about the Lumbar spine is: ----- L1-L4(G/cm2): 1.144 T Score Values are as follows: ----- L1: -1.7 ----- L2: 0.0 ----- L3: 0.3 ----- L4: -0.2 ----- L1-L4: -0.3 Bone mineral density has: Increased 0.4% since study of: 05/19/2020 Bone mineral density about the R hip (g/cm2): 1.028 Bone mineral density about the L hip (g/cm2): 1.038 T Score values are as follows: -----R Neck: -1.5 -----L Neck: -1.4 -----R Total: 0.2 -----L Total: 0.2 Bone mineral density has: Increased 1.0% since study of: 05/19/2020 FRAX%s: The graph provided illustrates a 8.0% chance for a major osteoporotic fx and a 0.7% chance fo r the hips probability for fx in 10 years time. IMPRESSION: Osteopenia (T Score between -2.5 and -1). There is slightly increased risk of fracture and the patient may be considered for treatment. Re-Screen 2-5 years. NOTE: T-SCORE=SD OF THE YOUNG ADULT MEAN.
--- NOTE | 2022-07-18 09:14 | MM ---
Reason for Exam: Screening (asymptomatic). Last mammogram was performed 1 year(s) and 1 month(s) ago. Patient History: Menarche at age 13. First Full-Term at age 20. Postmenopausal. Hormonal Contraceptives for 9 months starting at age 46. Maternal aunt had breast cancer. Risk Values: Jeane 5 year model risk: 1.3%. NCI Lifetime model risk: 5.5%. Prior Study Comparison: 04/24/2018 Bilateral Screening Mammogram, [facility]. 04/27/2020 Bilateral Screening Mammogram, [facility]. 06/28/2021 Bilateral Screening Mammogram, [facility]. Tissue Density: There are scattered fibroglandular densities. Findings: Analyzed By CAD. Pattern appears symmetrical stable. No significant interval change. Scattered benign punctate calcifications are present. No suspicious groups of microcalcifications, spiculated or lobular masses, architectural distortion or other secondary signs of malignancy are mammographically apparent. Overall Assessment: Benign, BI-RAD 2 Management: Screening Mammogram of both breasts in 1 year. A negative mammogram report should not preclude additional follow up of suspicious palpable abnormalities. Patient should continue monthly self breast exam. A clinical breast exam by your physician is recommended on an annual basis and results should be correlated with mammographic findings. Electronically signed and approved by: Miguel Maldonado D.O. Radiologis
== END | disposition home or self-care (01) ==
LOC: RADMAMWWP 14:08
PROVIDERS: ATTEND Family Medicine
DX: Z12.31 Encounter for screening mammogram for malignant neoplasm of breast (principal); Z13.820 Encounter for screening for osteoporosis; M85.89 Other specified disorders of bone density and structure, multiple sites; Z78.0 Asymptomatic menopausal state; Z80.3 Family history of malignant neoplasm of breast
CPT/HCPCS: 77063; 77067; 77080

== ENCOUNTER → 2022-07-31 | Outpatient (CLI) | payer MEDICARE ==
[2022-07-31 10:35] VITALS: BP 131/86; PULSE 86; RESP 17; TEMP 97.6
--- NOTE | 2022-07-31 11:17 | P.HPOB ---
History of Present Illness H&P Date: 07/31/22 Chief Complaint: The patient is here for her routine gynecologic exam. This is a 61-year-old with an LMP of 2015. The patient is without gynecologic complaints and denies any postmenopausal bleeding. She has noticed a lump on the right upper arm and thinks it may be related to the bone. She denies any significant trauma. It can become sore at times. She noticed it first about 2 months ago. Review of Systems The patient has lost 8 pounds over the last year. She has been trying to lose weight and has been exercising regularly at the [facility]. She denies respiratory, cardiac, or G.I. problems. Past Medical History Past Medical History: Hyperlipidemia, Hypertension Additional Past Medical History / Comment(s): Osteopenia. 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 History of Any Multi-Drug Resistant Organisms: None Reported Past Surgical History: Joint Replacement, Orthopedic Surgery Additional Past Surgical History / Comment(s): Abdominoplasty 1999. Colonoscopy 2008(Cologard 2019). Ankle surgery. Right knee replacement. 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 She has 2 grandchildren. - Past Family History Mother Family Medical History: Cancer Additional Family Medical History / Comment(s): Lung cancer. Maternal aunt had breast cancer. Father Additional Family Medical History / Comment(s): Committed suicide. Medications and Allergies Home Medications Medication Instructions Recorded Confirmed Type Gabapentin [Neurontin] 300 mg PO HS 03/11/17 07/31/22 History ARIPiprazole [Abilify] 10 mg PO QAM 03/31/19 07/31/22 History Losartan/Hydrochlorothiazide 0.5 tab PO QAM 03/31/19 07/31/22 History [Losartan-Hctz 100-25 mg Tab] buPROPion HCL [Wellbutrin SR] 150 mg PO BID 03/31/19 07/31/22 History Liraglutide [Victoza 2-Alirio] 1.2 mg SQ DAILY 06/28/21 07/31/22 History Allergies Allergy/AdvReac Type Severity Reaction Status Date / Time bee pollen Allergy Swelling Verified 01/24/23 10:30 Exam Vital Signs Temp Pulse Resp BP Pulse Ox 07/31/22 10:32 97.6 F 86 17 131/86 100 Intake and Output 07/30/22 07/31/22 07/31/22 22:59 06:59 14:59 Other: Weight 84.368 kg Height 5 feet 2 inches, weight 186 pounds, BMI 34.0. This is a well-developed well-nourished white female who is alert and oriented times 3 in no acute distress. HEENT: Within normal limits. NECK: Supple without mass or thyromegaly. CHEST AND LUNGS: Clear to auscultation. HEART: Regular rate and rhythm. BREASTS: Are without mass or discharge. AXILLARY EXAM: Negative for adenopathy. BACK: Negative for CVA tenderness. ABDOMEN: Soft, nontender, without palpable masses. PELVIC EXAM: Normal external genitalia with mild to moderate atrophy. Cervix and vagina appear normal with mild atrophy. There is no unusual discharge. There is no evidence of prolapse. The uterus is midposition, nongravid size and nontender. There are no palpable adnexal masses or tenderness. RECTAL EXAM: Though vaginal exam is negative for mass or tenderness and is negative for occult blood. EXTREMITIES: Nontender. There is a palpable lump on the lateral aspect of the right upper arm which seems deeper than a subcutaneous tissue lipoma. The lump measures approximately 2.5 x 3 cm. And has a rubbery consistency. This is minimally tender. IMPRESSION: 1. 61-year-old menopausal female with normal gynecologic exam. 2. History of osteopenia. 3. Lump on the right upper on approximately 2.5 x 3 cm. Differential diagnosis will include lipoma, muscle mass, or bone mass. PLAN: 1. Pap smear cotest was performed. 2. Self breast awareness was discussed with the patient. We have also discussed symptoms associated with inflammatory breast cancer. 3. Screening mammogram was recently done on 07/17/2022 and was benign. 4. Osteoporosis prevention was discussed. I have stressed the importance of adequate calcium, vitamin D and regular exercise. Recommended amounts of calcium and vitamin D were also discussed. Bone density test was also done through her PCP on 07/17/2022 and showed stable osteopenia. I recommended that she repeat this again in 2-3 years. 5. I recommended that she see her primary care physician regarding the right arm lump who can evaluated and determine if intervention is needed. 6. She was advised to return in one year for her annual well woman exam.
== END ==
LOC: WWCWWP 10:21
PROVIDERS: ATTEND Obstetrics & Gynecology
DX: Z01.411 Encounter for gynecological examination (general) (routine) with abnormal findings (principal); Z87.310 Personal history of (healed) osteoporosis fracture; E78.5 Hyperlipidemia, unspecified; I10 Essential (primary) hypertension; Z91.048 Other nonmedicinal substance allergy status

== ENCOUNTER → 2023-07-09 | Outpatient (CLI) | payer MEDICARE ==
--- NOTE | 2023-07-09 16:22 | US ---
EXAMINATION TYPE: US extremity nonvasc mass RT DATE OF EXAM: 07/09/2023 COMPARISON: NONE CLINICAL INDICATION: Female, 62 years old with history of R22.31 LOCALIZED SWELLING, MASS AND LUMP, R IGHT UP; Lump right bicep for 1 year TECHNIQUE: FINDINGS: hypoechoic lesion right bicep within area of concern = 1.3 x 0.6 x 1.1cm . This is nonspec ific. If additional evaluation would be of benefit, consider MRI. IMPRESSION: 1. Nonspecific hypoechoic area within the right bicep of uncertain etiology.
== END | disposition home or self-care (01) ==
LOC: RADUSWWP 15:15
PROVIDERS: ATTEND Family Medicine
DX: R22.31 Localized swelling, mass and lump, right upper limb (principal)

== ENCOUNTER → 2023-07-17 | Outpatient (CLI) | payer MEDICARE ==
--- NOTE | 2023-07-21 19:00 | MR ---
EXAMINATION: MR humerus RT w/wo con DATE OF EXAM: 07/17/2023 COMPARISON: Right upper extremity ultrasound 07/09/2023 HISTORY: Rt bicep pain, Rt bicep lesion, Abnormal US TECHNIQUE: Multiplanar, multisequence images of the right upper arm were acquired without and with co ntrast. FINDINGS: BONES/MARROW: Normal bone marrow signal. SOFT TISSUES: Myotendinous structures are normal. No anatomic variant. No bursal distention. No fluid collection. NEUROVASCULAR: Visualized neurovascular structures are normal. OTHER: Within the mid upper arm lateral subcutaneous fat, there is an enhancing soft tissue mass claudine uring 8 x 12 x 11 mm; the lesion is exclusive of the adjacent musculature. No lymphadenopathy. IMPRESSION: Enhancing 12 mm soft tissue mass in the lateral subcutaneous fat, suspicious for sarcomatous neoplasm . Recommend biopsy and orthopedic oncologic consultation.
== END | disposition home or self-care (01) ==
LOC: RADMRIMAIN 12:57
PROVIDERS: ATTEND Family Medicine
DX: M79.89 Other specified soft tissue disorders (principal); R22.31 Localized swelling, mass and lump, right upper limb
CPT/HCPCS: 73220; A9585

== ENCOUNTER → 2023-12-11 | Outpatient (CLI) | payer MEDICARE ==
[2023-12-11 11:08] VITALS: BP 137/87; PULSE 88; RESP 18; TEMP 97.9
--- NOTE | 2023-12-11 12:01 | P.HPOB ---
History of Present Illness H&P Date: 12/11/23 Chief Complaint: The patient is here for her routine gynecologic exam and ma mmogram. This is a 62-year-old with an LMP of 2014. The patient is without gynecologic complaints and denies any postmenopausal bleeding. Review of Systems The patient's weight has been stable over the last year. She denies respiratory, cardiac, or G.I. problems. Past Medical History Past Medical History: Hyperlipidemia, Hypertension Additional Past Medical History / Comment(s): Osteopenia. 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 History of Any Multi-Drug Resistant Organisms: None Reported Past Surgical History: Joint Replacement, Orthopedic Surgery Additional Past Surgical History / Comment(s): Abdominoplasty 1999. Colonoscopy 2008(Cologard 2019). Ankle surgery. Right knee replacement. Past Psychological History: Anxiety, Depression Smoking Status: Never smoker Past Alcohol Use History: Occasional (4 drinks per month.) Past Drug Use History: None Reported Additional History: She has been since 1979 and is a homemaker. She has 2 grandchildren. - Past Family History Mother Family Medical History: Cancer Additional Family Medical History / Comment(s): Lung cancer. Maternal aunt had breast cancer. Father Additional Family Medical History / Comment(s): Committed suicide. Medications and Allergies Home Medications Medication Instructions Recorded Confirmed Type Gabapentin [Neurontin] 300 mg PO HS 03/11/17 12/11/23 History ARIPiprazole [Abilify] 10 mg PO QAM 03/31/19 12/11/23 History Losartan/Hydrochlorothiazide 0.5 tab PO QAM 03/31/19 12/11/23 History [Losartan-Hctz 100-25 mg Tab] buPROPion HCL [Wellbutrin SR] 150 mg PO BID 03/31/19 12/11/23 History Semaglutide [Ozempic] 0.25 mg SQ WEEKLY 12/11/23 12/11/23 History Allergies Allergy/AdvReac Type Severity Reaction Status Date / Time bee pollen Allergy Swelling Verified 12/11/23 11:05 Exam Vital Signs Temp Pulse Resp BP Pulse Ox 12/11/23 11:06 97.9 F 88 18 137/87 95 Intake and Output 12/10/23 12/11/23 12/11/23 22:59 06:59 14:59 Other: Weight 84.822 kg Height 5 feet 3 inches, weight 187 pounds, BMI 33.1. This is a well-developed well-nourished white female who is alert and oriented times 3 in no acute distress. HEENT: Within normal limits. NECK: Supple without mass or thyromegaly. CHEST AND LUNGS: Clear to auscultation. HEART: Regular rate and rhythm. BREASTS: Are without mass or discharge. AXILLARY EXAM: Negative for adenopathy. BACK: Negative for CVA tenderness. ABDOMEN: Soft, nontender, without palpable masses. PELVIC EXAM: Normal external genitalia with mild atrophy. Cervix and vagina appear normal with mild atrophy. There is no unusual discharge. There is no evidence of prolapse. The uterus is midposition, nongravid size and nontender. There are no palpable adnexal masses or tenderness. RECTAL EXAM: Rectovaginal exam is negative for mass or tenderness and is negat doris for occult blood. EXTREMITIES: Nontender. IMPRESSION: 1. 62-year-old menopausal female with normal gynecologic exam. 2. History of osteopenia. PLAN: 1. Pap smear was deferred since she had a negative Pap smear cotest on 07/31/2022. 2. Self breast awareness was discussed with the patient. We have also discussed symptoms associated with inflammatory breast cancer. 3. Screening mammogram will be done today. 4. Osteoporosis prevention was discussed. I have stressed the importance of adequate calcium, vitamin D and regular exercise. Recommended amounts of calcium and vitamin D were also discussed. Plan on repeating the bone density test in 1 year. 5. Rectal cancer screening is done with Cologuard testing which she will be doing this upcoming year for the patient. 6. She was advised to return in one year for her annual well woman exam.
--- NOTE | 2023-12-12 14:02 | MM ---
Reason for Exam: Screening (asymptomatic). Last mammogram was performed 1 year(s) and 5 month(s) ago. Patient History: Menarche at age 13. First Full-Term at age 20. Postmenopausal. Hormonal Contraceptives for 9 months starting at age 46. Maternal aunt had breast cancer. Risk Values: Jeane 5 year model risk: 1.3%. NCI Lifetime model risk: 5.3%. Prior Study Comparison: 04/27/2020 Bilateral Screening Mammogram, [facility]. 06/28/2021 Bilateral Screening Mammogram, [facility]. 07/17/2022 Bilateral MG 3D screening mammo w/cad, [facility]. Tissue Density: There are scattered areas of fibroglandular density. Findings: Analyzed By CAD. Right breast: There is no suspicious group of microcalcifications or new suspicious mass. Left breast: There is no suspicious group of microcalcifications or new suspicious mass. Overall Assessment: Negative, BI-RAD 1 Management: Screening Mammogram of both breasts in [address] [facility] will attempt to contact patient to return for supplemental views and ultrasound if indicated. Patient should continue monthly self-breast exams. A clinical breast exam by your physician is recommended on an annual basis. This exam should not preclude additional follow-up of suspicious palpable abnormalities. Note on Jeane scores and lifetime risk: 1. A Jeane score greater than 3% is considered moderate risk. If this is the case, consider specialist referral to assess eligibility for a risk reducing agent. 2. If overall lifetime risk for the development of breast cancer is 20% or higher, the patient may qualify for future screening with alternating mammogram and breast MRI. Electronically signed and approved by: Juan Robert DO
== END ==
LOC: WWCWWP 10:18
PROVIDERS: ATTEND Obstetrics & Gynecology
DX: Z12.31 Encounter for screening mammogram for malignant neoplasm of breast (principal); R92.323 Mammographic fibroglandular density, bilateral breasts; M85.80 Other specified disorders of bone density and structure, unspecified site; Z78.0 Asymptomatic menopausal state; Z91.030 Bee allergy status; Z80.3 Family history of malignant neoplasm of breast
CPT/HCPCS: 77063; 77067

== ENCOUNTER → 2025-01-01 | Outpatient (CLI) | payer MEDICARE ==
--- NOTE | 2025-01-01 09:58 | MM ---
Reason for Exam: Screening (asymptomatic). Last screening mammogram was performed 12 month(s) ago. Patient History: Menarche at age 13. First Full-Term at age 20. Postmenopausal. Hormonal Contraceptives for 9 months starting at age 46. Maternal aunt had breast cancer. Risk Values: Jeane 5 year model risk: 1.4%. NCI Lifetime model risk: 4.9%. Prior Study Comparison: 06/28/2021 Bilateral Screening Mammogram, [facility]. 07/17/2022 Bilateral MG 3D screening mammo w/cad, [facility]. 12/11/2023 Bilateral MG 3D screening mammo w/cad, [facility]. Tissue Density: There are scattered areas of fibroglandular density. Findings: Analyzed By CAD. Right breast: There is no suspicious group of microcalcifications or new suspicious mass. Left breast: There is no suspicious group of microcalcifications or new suspicious mass. Overall Assessment: Negative, BI-RAD 1 Management: Screening Mammogram of both breasts in [address] [facility] will attempt to contact patient to return for supplemental views and ultrasound if indicated. Patient should continue monthly self-breast exams. A clinical breast exam by your physician is recommended on an annual basis. This exam should not preclude additional follow-up of suspicious palpable abnormalities. Note on Jeane scores and lifetime risk: 1. A Jeane score greater than 3% is considered moderate risk. If this is the case, consider specialist referral to assess eligibility for a risk reducing agent. 2. If overall lifetime risk for the development of breast cancer is 20% or higher, the patient may qualify for future screening with alternating mammogram and breast MRI. [facility], , 01/01/2025 9:56 AM. Electronically signed and approved by: Juan Robert DO
== END | disposition home or self-care (01) ==
LOC: RADMAMWWP 09:18
PROVIDERS: ATTEND Family Medicine
DX: Z12.31 Encounter for screening mammogram for malignant neoplasm of breast (principal); R92.323 Mammographic fibroglandular density, bilateral breasts; Z78.0 Asymptomatic menopausal state; Z80.3 Family history of malignant neoplasm of breast; Z92.0 Personal history of contraception
CPT/HCPCS: 77063; 77067